=== PATIENT | male | born 1980 | race Caucasian/White ===

== ENCOUNTER 2021-04-19 09:49 | Emergency (ER) | payer OTHER ==
[~2021-04-19] VITALS: Ht 177.8 cm; Wt 70.3 kg
[2021-04-19 10:56] LABS: ABSOLUTE EOSINOPHILS 0.2 thou/uL (0.0-0.7); ABSOLUTE LYMPHOCYTES 0.7 thou/uL (0.8-5.3); ABSOLUTE MONOCYTES 0.5 thou/uL (0.0-1.2); ABSOLUTE NEUTROPHILS 6.3 thou/uL (1.6-8.1); BASOPHILS 0.2 %; EOSINOPHILS 2.3 %; HEMATOCRIT 46.1 % (42.0-52.0); HEMOGLOBIN 16.2 gm/dL (14.0-18.0); LYMPHOCYTES 8.7 %; MCH 31.2 pg (26.0-34.0); MCHC 35.2 g/dL (28.0-37.0); MCV 88.5 fL (80.0-100.0); MONOCYTES 6.4 %; MPV 6.9 fl. (7.2-11.1); NUCLEATED RBCS 0 /100WBC; PLATELET COUNT* 196 thou/uL (150-400); POLYS 82.4 %; RBC 5.21 mil/uL (4.50-6.00); RDW-CV 13.3 % (10.5-14.5); WBC 7.7 thou/uL (4.0-11.0)
[2021-04-19] MEDS ORDERED: BACTRIM DS TAB1 EACH PO (10:58)
[2021-04-19] MEDS ORDERED: CEPHALEXIN500 MG PO (10:58)
[2021-04-19] MEDS ORDERED: HYDROCODON-ACE1 EAC7 PO (10:58)
[2021-04-19 11:08] LABS: APTT 27.1 Seconds (25.0-31.3); PROTIME 10.8 Seconds (9.20-11.50)
[2021-04-19 11:10] LABS: CALCIUM 8.9 mg/dL (8.5-10.1); CREATININE 1.2 mg/dL (0.6-1.3); POTASSIUM 3.8 mmol/L (3.5-5.1)
[2021-04-19 11:14] LABS: ALBUMIN 4.3 g/dL (3.4-5.0); TOTAL PROTEIN 8.8 g/dL (6.4-8.2)
[2021-04-19 13:23] VITALS: BP 149/104
== END 2021-04-19 13:25 | disposition home or self-care (01) ==
LOC: M.ERS 09:49
PROVIDERS: Family Medicine
DX: T63.331A Toxic effect of venom of brown recluse spider, accidental (unintentional), initial encounter (principal); L03.116 Cellulitis of left lower limb; Y92.89 Other specified places as the place of occurrence of the external cause